=== PATIENT | male | born 1960 | race Caucasian/White ===

== ENCOUNTER 2017-07-13 23:12 | Inpatient (IN) | payer BC ==
[2017-07-13] MEDS ORDERED: Sodium Chloride 0.9% 1,000 ML IV ONE (23:56)
[2017-07-13] MEDS ORDERED: Ampicillin/Sulbactam Na 3 GM in Sodium Chloride 0.9% 100 ML IV ONE (23:56)
--- NOTE | 2017-07-13 23:56 | EDM.PDOC ---
ED HPI GENERAL MEDICAL PROBLEM - General Chief Complaint: Bite:Animal, Insect Stated Complaint: PAIN RT HAND/CAT BITE Time Seen by Provider: 07/13/17 23:52 - History of Present Illness INITIAL COMMENTS - FREE TEXT/NARRATIVE: HISTORY AND PHYSICAL: History of present illness: Patient 57-year-old white male presents status post cat bite this occurred 24 hours prior to arrival he was seen in another ER in [place] put on Augmentin and pain medication he presents now with wrist pain he states he did not realize it when this occurred he fell and injured his wrist also. No fever chills nausea vomiting Review of systems: As per history of present illness and below otherwise all systems reviewed and negative. Past medical history: As per history of present illness and as reviewed below otherwise noncontributory. Surgical history: As per history of present illness and as reviewed below otherwise noncontributory. Social history: No reported history of drug or alcohol abuse. Family history: As per history of present illness and as reviewed below otherwise noncontributory. Physical exam: HEENT: Atraumatic, normocephalic, pupils reactive, negative for conjunctival pallor or scleral icterus, mucous membranes moist, throat clear, neck supple, nontender, trachea midline. Lungs: Clear to auscultation, breath sounds equal bilaterally, chest nontender. Heart: S1S2, regular, negative for clicks, rubs, or JVD. Abdomen: Soft, nondistended, nontender. Negative for masses or hepatosplenomegaly. Negative for costovertebral tenderness. Pelvis: Stable nontender. Genitourinary: Deferred. Rectal: Deferred. Extremities: Patient has swelling erythema in the fifth digit where he sustained puncture wounds is limited range of motion secondary to pain wrist has no gross deformity crepitation or point tenderness Neuro: Awake, alert, oriented. Cranial nerves II through XII unremarkable. Cerebellum unremarkable. Motor and sensory unremarkable throughout. Exam nonfocal. Diagnostics: X-ray right wrist Therapeutics: None Impression: #1 cat Bite right hand with cellulitis #2 right wrist injury Definitive disposition and diagnosis as appropriate pending reevaluation and review of above. right little finger Pain Score (Numeric/FACES): 10 right wrist Pain Score (Numeric/FACES): 10 - Related Data Allergies Allergy/AdvReac Type Severity Reaction Status Date / Time No Known Allergies Allergy Verified 07/13/17 23:40 Home Meds: Home Meds Amoxicillin/Clavulanate K [Augmentin 875-125 MG] 1 tab PO BID 07/13/17 [History] Hydrocodone/Acetaminophen [Hydrocodon-Acetaminophen 5-325] 1 tab PO Q6HR PRN [History] Past Medical History - Past Health History Medical/Surgical History: Denies Medical/Surgical History Social & Family History - Family History Family Medical History: Noncontributory - Tobacco Use Smoking Status *Q: Never Smoker - Recreational Drug Use Recreational Drug Use: No ED ROS GENERAL - Review of Systems Review Of Systems: ROS reveals no pertinent complaints other than HPI. ED EXAM, ANIMAL BITE - Physical Exam Exam: See Below (See dictation) Course - Vital Signs Last Recorded V/S: Last Vital Signs Temp 37.0 C 07/15/17 16:00 Pulse 65 07/15/17 16:00 Resp 16 07/15/17 16:00 BP 148/91 H 07/15/17 16:00 Pulse Ox 97 07/15/17 16:00 - Orders/Labs/Meds Orders: Medication Orders Hydrocodone Bitart/Acetaminophen ([place] 325-5 Mg) 2 tab PO Q4H PRN PRN Reason: Pain Last Admin: 07/15/17 15:50 Dose: 2 tab Admin: 07/15/17 08:44 Dose: 2 tab Admin: 07/15/17 04:19 Dose: 2 tab Admin: 07/14/17 20:24 Dose: 2 tab Admin: 07/14/17 13:04 Dose: 2 tab Piperacillin Sod/Tazobactam (Sod 3.375 gm/ Sodium Chloride) 50 mls @ 100 mls/ hr IV Q8H [facility] Last Admin: 07/15/17 15:54 Dose: 100 mls/hr Infusion: 07/15/17 08:33 Dose: 100 mls/hr Admin: 07/15/17 08:03 Dose: 100 mls/hr Vancomycin HCl 1,500 mg/ (Sodium Chloride) 500 mls @ 333.333 mls/hr IV Q12H [facility] Last Admin: 07/15/17 08:38 Dose: 333.333 mls/hr Ondansetron HCl (Zofran Odt) 4 mg PO Q4H PRN PRN Reason: Nausea/Vomiting Labs: Laboratory Tests 07/13/17 07/13/17 Range/Units 00:06 00:34 WBC 15.29 H (4.0-11.0) K/uL RBC 4.57 (4.50-5.90) M/uL Hgb 14.7 (13.0-17.0) g/dL Hct 42.2 (38.0-50.0) % MCV 92.3 (80.0-98.0) fL MCH 32.2 H (27.0-32.0) pg MCHC 34.8 (31.0-37.0) g/dL RDW Std Deviation 40.9 (28.0-62.0) fl RDW Coeff of Andry 12 (11.0-15.0) % Plt Count 205 (150-400) K/uL MPV 13.20 H (7.40-12.00) fL Neut % (Auto) 77.7 (48.0-80.0) % Lymph % (Auto) 10.9 L (16.0-40.0) % [place] % (Auto) 9.5 (0.0-15.0) % Eos % (Auto) 1.8 (0.0-7.0) % Baso % (Auto) 0.1 (0.0-1.5) % Neut # (Auto) 11.9 H (1.4-5.7) K/uL Lymph # (Auto) 1.7 (0.6-2.4) K/uL [place] # (Auto) 1.5 H (0.0-0.8) K/uL Eos # (Auto) 0.3 (0.0-0.7) K/uL Baso # (Auto) 0.0 (0.0-0.1) K/uL Sodium 140 (136-146) mmol/L Potassium 4.0 (3.5-5.1) mmol/L Chloride 106 (98-110) mmol/L Carbon Dioxide 21 (21-31) mmol/L BUN 17 (6.0-23.0) mg/dL Creatinine 1.2 (0.6-1.5) mg/dL Est Cr Clr Drug Dosing 74.55 mL/min Estimated GFR (MDRD) > 60.0 ml/min Glucose 138 H (60-110) mg/dL Calcium 9.6 (8.8-10.8) mg/dL Total Bilirubin 0.8 (0.1-1.5) mg/dL AST 18 (5-40) IU/L ALT 25 (8-54) IU/L Alkaline Phosphatase 77 (40-150) Total Protein 7.5 (6.0-8.0) g/dL Albumin 4.5 (3.5-5.0) g/dL Globulin 3.0 (2.0-3.5) g/dL Albumin/Globulin Ratio 1.5 (1.3-2.8) Meds: Medications Generic Name Dose Route Start Last Admin Trade Name Yoshi PRN Reason Stop Dose Admin Hydrocodone Bitart/Acetaminophen 2 tab 07/14/17 09:38 07/15/17 15:50 [place] 325-5 Mg PO 2 tab Q4H PRN Administration Pain Piperacillin Sod/Tazobactam 50 mls @ 100 mls/hr 07/15/17 08:00 07/15/17 15:54 Sod 3.375 gm/ Sodium Chloride IV 100 mls/hr Q8H [facility] Administration Vancomycin HCl 1,500 mg/ 500 mls @ 333.333 mls/hr 07/15/17 09:00 07/15/17 08: 38 Sodium Chloride IV 333.333 mls/hr Q12H [facility] Administration Ondansetron HCl 4 mg 07/14/17 09:38 Zofran Odt PO Q4H PRN Nausea/Vomiting Discontinued Medications Generic Name Dose Route Start Last Admin Trade Name Yoshi PRN Reason Stop Dose Admin Ampicillin Sodium/Sulbactam 100 mls @ 200 mls/hr 07/13/17 23:56 07/14/17 00: 39 Sodium 3 gm/ Sodium Chloride IV 07/14/17 00:25 200 mls/hr ONETIME ONE Administration Sodium Chloride 1,000 mls @ 999 mls/hr 07/13/17 23:56 07/14/17 00:18 Normal Saline IV 07/14/17 00:56 999 mls/hr STAT ONE Administration Ampicillin Sodium/Sulbactam 50 mls @ 100 mls/hr 07/14/17 10:30 07/14/17 16:55 Sodium 1.5 gm/ Sodium Chloride IV 07/14/17 18:30 100 mls/hr Q6H [facility] Administration Ampicillin Sodium/Sulbactam 50 mls @ 100 mls/hr 07/14/17 22:30 07/15/17 04:12 Sodium 1.5 gm/ Sodium Chloride IV 100 mls/hr Q6H [facility] Administration Vancomycin HCl 1,000 mg/ 250 mls @ 167 mls/hr 07/15/17 08:00 Dextrose/Water IV Q24H [facility] Ketorolac Tromethamine 30 mg 07/14/17 00:18 07/14/17 00:41 Toradol IVPUSH 07/14/17 00:19 30 mg ONETIME ONE Administration Departure - Departure Time of Disposition: 18:25 Disposition: Refer to Observation Condition: Good Clinical Impression: Cellulitis, Animal bite of hand - Discharge Information
[2017-07-14] MEDS ORDERED: Ketorolac 30 MG/ML SDV IVPUSH ONE (00:18)
[2017-07-14 00:54] LABS: CHLORIDE,CL 106 mmol/L (98-110); SODIUM,NA 140 mmol/L (136-146)
[2017-07-14] MEDS: Ampicillin/Sulbactam Na 1.5 GM in Sodium Chloride 0.9% 50 ML IV SCH ×3 (11:26→22:22)
[2017-07-14] MEDS: Acetaminophen/HYDROcodone 325-5 MG Tab PO PRN ×2 (13:04→20:24)
--- NOTE | 2017-07-14 14:20 | CR ---
EXAM DATE: 07/14/17 PATIENT'S AGE: 57 Patient: TERELL ROBERTO Facility: [place], [place] Site . Site : 1960 Study: XRay Extremity Right [id number]/17/2018 12:07:39 AM Ordering Physician: Romeo Marte Final Report: INDICATION: cat bite, red, swollen hand/wrist TECHNIQUE: Two views of the right hand COMPARISON: None FINDINGS: Bones: No fractures or bone lesions. Joint spaces: Degenerative changes. Soft tissues: Unremarkable. IMPRESSION: No acute bony abnormality Dictated by Herve Lai MD @ 07/14/2017 12:19:20 AM Dictated by: Herve Lai MD @ 07/14/2017 00:19:28 (Electronic Signature) Report Signed by Proxy. [facility]
[2017-07-15] MEDS: Ampicillin/Sulbactam Na 1.5 GM in Sodium Chloride 0.9% 50 ML IV SCH (04:12)
[2017-07-15] MEDS: Acetaminophen/HYDROcodone 325-5 MG Tab PO PRN ×4 (04:19→20:28)
--- NOTE | 2017-07-15 07:57 | PCM.HP ---
H&P History of Present Illness - General Date of Service: 07/15/17 Admit Problem/Dx: Admission Diagnosis/Problem Admission Diagnosis/Problem Cellulitis Source of Information: Patient, Provider, RN History Limitations: Reports: No Limitations - History of Present Illness Initial Comments - Free Text/Narative: cat bite wednesday and worsening. Started PO antibiotics and now with some worsening. IV antibiotics in the ER with some improvement. PAtient has a previouis hardware placement in hip. Discussed the need for aggressive treatment given the wrist pain as well as the hardware. Will plan admission and continued antibiotics as the current dosage seems to be improving the situation. All questions answered. No redness and no volar finger tenderness. Onset of Symptoms: Reports: Gradual Symptom Onset Date: 07/12/17 Duration of Symptoms: Reports: Day(s): Location: Reports: Upper Extremity, Right Quality: Reports: Ache, Throbbing Severity: Moderate Improves with: Reports: Immobilization Worsens with: Reports: Movement Context: Reports: Other (CAt - fully vaccinated) right little finger Pain Score (Numeric/FACES): 10 right wrist Pain Score (Numeric/FACES): 4 - Related Data Allergies/Adverse Reactions: Allergies Allergy/AdvReac Type Severity Reaction Status Date / Time No Known Allergies Allergy Verified 07/13/17 23:40 Home Medications: Home Meds Amoxicillin/Clavulanate K [Augmentin 875-125 MG] 1 tab PO BID 07/13/17 [History] Hydrocodone/Acetaminophen [Hydrocodon-Acetaminophen 5-325] 1 tab PO Q6HR PRN [History] Past Medical History - Past Health History Medical/Surgical History: Denies Medical/Surgical History HEENT History: Reports: Other (See Below) Other HEENT History: wears glasses Gastrointestinal History: Reports: PUD Musculoskeletal History: Reports: Arthritis Neurological History: Reports: Seizure - Infectious Disease History Infectious Disease History: Reports: Chicken Pox - Past Surgical History HEENT Surgical History: Reports: Tonsillectomy Cardiovascular Surgical History: Reports: Other (See Below) 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 GI Surgical History: Reports: None Other Neurological Surgeries/Procedures: last seizure 15 yrs ago Musculoskeletal Surgical History: Reports: Hip Replacement Social & Family History - Family History Family Medical History: Noncontributory - Tobacco Use Smoking Status *Q: Never Smoker Second Hand Smoke Exposure: No - Caffeine Use Caffeine Use: Reports: Coffee - Recreational Drug Use Recreational Drug Use: No H&P Review of Systems - Review of Systems: Review Of Systems: See Below General: Reports: No Symptoms HEENT: Reports: No Symptoms Pulmonary: Reports: No Symptoms Musculoskeletal: Reports: Arm Pain, Hand Pain, Muscle Pain Skin: Reports: Wound Exam - Exam Exam: See Below - Vital Signs Vital Signs: Last Vital Signs Temp 98.5 F 07/15/17 05:00 Pulse 71 07/15/17 05:00 Resp 19 07/15/17 05:00 BP 128/79 07/15/17 05:00 Pulse Ox 97 07/15/17 05:00 Weight: 252 lb 9.6 oz - Exam General: Alert, Oriented, Cooperative HEENT: EOMI Lungs: Normal Respiratory Effort Extremities: Arm Pain, Redness (at finger cat bite. limited to pip joint area at this time. ) Skin: Warm, Dry, Wound (cat bite to pip joint area of the right small finger. ) Neuro Extensive - Mental Status: Alert, Oriented x3, Normal Mood/Affect Psychiatric: Alert, Normal Affect, Normal Mood - Patient Data Lab Results Last 24 hrs: Laboratory Results - last 24 hr 07/15/17 Range/Units 04:57 WBC 11.85 H (4.0-11.0) K/uL RBC 4.41 L (4.50-5.90) M/uL Hgb 14.0 (13.0-17.0) g/dL Hct 40.8 (38.0-50.0) % MCV 92.5 (80.0-98.0) fL MCH 31.7 (27.0-32.0) pg MCHC 34.3 (31.0-37.0) g/dL RDW Std Deviation 42.7 (28.0-62.0) fl RDW Coeff of Andry 13 (11.0-15.0) % Plt Count 189 (150-400) K/uL MPV 13.70 H (7.40-12.00) fL Neut % (Auto) 67.3 (48.0-80.0) % Lymph % (Auto) 18.4 (16.0-40.0) % [place] % (Auto) 10.7 (0.0-15.0) % Eos % (Auto) 3.3 (0.0-7.0) % Baso % (Auto) 0.3 (0.0-1.5) % Neut # (Auto) 8.0 H (1.4-5.7) K/uL Lymph # (Auto) 2.2 (0.6-2.4) K/uL [place] # (Auto) 1.3 H (0.0-0.8) K/uL Eos # (Auto) 0.4 (0.0-0.7) K/uL Baso # (Auto) 0.0 (0.0-0.1) K/uL Nucleated RBC % 0.0 /100WBC Nucleated RBCs # 0 K/uL Result Diagrams: 07/15/17 04:57 07/13/17 00:06 *Q Meaningful Use (ADM) - VTE *Q VTE Criteria *Q: VTE Anticoagulation Contraindications: Med/TX Not Indicated/Need - VTE Risk Assess *Q Each Risk Factor Represents 1 Point: Age 41 - 59 years Total Score 1 Point Risk Factors: 1 Each Risk Factor Represents 2 Points: None Total Score 2 Point Risk Factors: 0 Each Risk Factor Represents 3 Points: None Total Score 3 Point Risk Factors: 0 Each Risk Factor Represents 5 Points: None Total Score 5 Point Risk Factors: 0 Venous Thromboembolism Risk Factor Score *Q: 1 - Stroke *Q Stroke Criteria *Q: Anticoagulation Contraindications Stroke *Q: Med/TX Not Indicated/Need Antithrombotic Contraindications Stroke *Q: Med/TX Not Indicated/Need Thrombolytic/Fibrinolytic Contraindications Stroke *Q: Med/TX Not Indicated/Need Statin Contraindications Stroke *Q: Med/TX Not Indicated/Need Rehabilitation Assessment Contraindication *Q: Med/tx not indicated/need - AMI *Q AMI Criteria *Q: Aspirin Contraindications AMI *Q: Med/TX Not Indicated/Need Thrombolytic/Fibrinolytic Contraindications IV (AMI) *Q: Med/tx not indicated/ need Statin Contraindications AMI *Q: Med/TX Not Indicated/Need - Problem List (1) Cellulitis and abscess of hand SNOMED Code(s): 327742185 ICD Code: L03.119 - CELLULITIS OF UNSPECIFIED PART OF LIMB; L02.519 - CUTANEOUS ABSCESS OF UNSPECIFIED HAND Status: Acute Priority: High Current Visit: Yes Problem List Initiated/Reviewed/Updated: Yes Orders Last 24hrs: Active Orders 24 hr Category Date Time Status Elevate Extremity [RC] CONTINUOUS Care 07/14/17 09:38 Active Telemetry Monitoring [Cardiac Monitoring] [RC] Q8H Care 07/14/17 13:00 Active Wound Care [RC] Q12H Care 07/14/17 09:38 Active Regular Diet [DIET] Diet 07/14/17 Lunch Active Acetaminophen/HYDROcodone [[place] 325-5 MG] Med 07/14/17 09:38 Active 2 tab PO Q4H PRN Ondansetron [Zofran ODT] Med 07/14/17 09:38 Active 4 mg PO Q4H PRN Piperacillin/Tazobactam [Piperacil-Tazobact] 3.375 gm Med 07/15/17 08:00 Ordered Sodium Chloride 0.9% [Normal Saline] 50 ml IV Q8H Vancomycin 1,000 mg Med 07/15/17 08:00 Ordered Dextrose 5% in Water 250 ml IV Q24H Medication Orders Hydrocodone Bitart/Acetaminophen ([place] 325-5 Mg) 2 tab PO Q4H PRN PRN Reason: Pain Last Admin: 07/15/17 04:19 Dose: 2 tab Admin: 07/14/17 20:24 Dose: 2 tab Admin: 07/14/17 13:04 Dose: 2 tab Piperacillin Sod/Tazobactam (Sod 3.375 gm/ Sodium Chloride) 50 mls @ 100 mls/ hr IV Q8H [facility] Vancomycin HCl 1,000 mg/ (Dextrose/Water) 250 mls @ 167 mls/hr IV Q24H [facility] Ondansetron HCl (Zofran Odt) 4 mg PO Q4H PRN PRN Reason: Nausea/Vomiting Assessment/Plan Comment:: admit for IV antibiotics and observation. wound cares as noted.
--- NOTE | 2017-07-15 08:02 | PCM.PN ---
- General Info Date of Service: 07/15/17 Admission Dx/Problem (Free Text): Admission Diagnosis/Problem Admission Diagnosis/Problem Cellulitis Functional Status: Reports: New Symptoms (worsening pain in the arm and swelling overnight. ). Denies: Pain Controlled - Review of Systems General: Denies: Fever HEENT: Reports: No Symptoms Pulmonary: Reports: No Symptoms Musculoskeletal: Reports: Arm Pain, Hand Pain Skin: Denies: Rash - Patient Data Vitals - Most Recent: Last Vital Signs Temp 98.5 F 07/15/17 05:00 Pulse 71 07/15/17 05:00 Resp 19 07/15/17 05:00 BP 128/79 07/15/17 05:00 Pulse Ox 97 07/15/17 05:00 Weight - Most Recent: 252 lb 9.6 oz I&O - Last 24 Hours: Intake & Output 07/14/17 07/14/17 07/15/17 15:59 23:59 07:59 Intake Total 100 1500 Balance 100 1500 Lab Results Last 24 Hours: Laboratory Results - last 24 hr 07/15/17 Range/Units 04:57 WBC 11.85 H (4.0-11.0) K/uL RBC 4.41 L (4.50-5.90) M/uL Hgb 14.0 (13.0-17.0) g/dL Hct 40.8 (38.0-50.0) % MCV 92.5 (80.0-98.0) fL MCH 31.7 (27.0-32.0) pg MCHC 34.3 (31.0-37.0) g/dL RDW Std Deviation 42.7 (28.0-62.0) fl RDW Coeff of Andry 13 (11.0-15.0) % Plt Count 189 (150-400) K/uL MPV 13.70 H (7.40-12.00) fL Neut % (Auto) 67.3 (48.0-80.0) % Lymph % (Auto) 18.4 (16.0-40.0) % [place] % (Auto) 10.7 (0.0-15.0) % Eos % (Auto) 3.3 (0.0-7.0) % Baso % (Auto) 0.3 (0.0-1.5) % Neut # (Auto) 8.0 H (1.4-5.7) K/uL Lymph # (Auto) 2.2 (0.6-2.4) K/uL [place] # (Auto) 1.3 H (0.0-0.8) K/uL Eos # (Auto) 0.4 (0.0-0.7) K/uL Baso # (Auto) 0.0 (0.0-0.1) K/uL Nucleated RBC % 0.0 /100WBC Nucleated RBCs # 0 K/uL Med Orders - Current: Current Medications Hydrocodone Bitart/Acetaminophen ([place] 325-5 Mg) 2 tab PO Q4H PRN PRN Reason: Pain Last Admin: 07/15/17 04:19 Dose: 2 tab Piperacillin Sod/Tazobactam (Sod 3.375 gm/ Sodium Chloride) 50 mls @ 100 mls/ hr IV Q8H [facility] Vancomycin HCl 1,500 mg/ (Sodium Chloride) 500 mls @ 333.333 mls/hr IV Q12H [facility] Ondansetron HCl (Zofran Odt) 4 mg PO Q4H PRN PRN Reason: Nausea/Vomiting Discontinued Medications Ampicillin Sodium/Sulbactam (Sodium 3 gm/ Sodium Chloride) 100 mls @ 200 mls/ hr IV ONETIME ONE Stop: 07/14/17 00:25 Last Admin: 07/14/17 00:39 Dose: 200 mls/hr Sodium Chloride (Normal Saline) 1,000 mls @ 999 mls/hr IV STAT ONE Stop: 07/14/17 00:56 Last Admin: 07/14/17 00:18 Dose: 999 mls/hr Ampicillin Sodium/Sulbactam (Sodium 1.5 gm/ Sodium Chloride) 50 mls @ 100 mls/ hr IV Q6H [facility] Stop: 07/14/17 18:30 Last Admin: 07/14/17 16:55 Dose: 100 mls/hr Ampicillin Sodium/Sulbactam (Sodium 1.5 gm/ Sodium Chloride) 50 mls @ 100 mls/ hr IV Q6H [facility] Last Admin: 07/15/17 04:12 Dose: 100 mls/hr Vancomycin HCl 1,000 mg/ (Dextrose/Water) 250 mls @ 167 mls/hr IV Q24H [facility] Ketorolac Tromethamine (Toradol) 30 mg IVPUSH ONETIME ONE Stop: 07/14/17 00:19 Last Admin: 07/14/17 00:41 Dose: 30 mg - Exam General: Alert, Oriented, Cooperative HEENT: EOMI Lungs: Normal Respiratory Effort Extremities: Arm Pain, Redness (some redness of the finger now with minor redness at the wrist are. Clearly worse than yesterday. No signs of flexor tenosynovitis and able to extend fingers with some pain on the small finger. No pain in the palm and some wrist pain volarly at the ulnar side. No lymphangetic streaking at this time. ) Skin: Warm, Dry Wound/Incisions: No Drainage, Erythema (more redness at the pip joint area. No continues streaking up the arm. Some volar wrist redness where he injured this with fall. Overall worse than yesterday despite initial improvement. ) Neurological: No New Focal Deficit Psy/Mental Status: Alert, Normal Affect, Normal Mood - Problem List & Annotations (1) Cellulitis and abscess of hand SNOMED Code(s): 205335049 Code(s): L03.119 - CELLULITIS OF UNSPECIFIED PART OF LIMB; L02.519 - CUTANEOUS ABSCESS OF UNSPECIFIED HAND Status: Acute Priority: High Current Visit: Yes - Problem List Review Problem List Initiated/Reviewed/Updated: Yes - My Orders Last 24 Hours: My Active Orders 07/14/17 09:38 Elevate Extremity [RC] CONTINUOUS Wound Care [RC] Q12H Acetaminophen/HYDROcodone [[place] 325-5 MG] 2 tab PO Q4H PRN Ondansetron [Zofran ODT] 4 mg PO Q4H PRN 07/14/17 13:00 Telemetry Monitoring [Cardiac Monitoring] [RC] Q8H 07/14/17 Lunch Regular Diet [DIET] 07/15/17 08:00 Piperacillin/Tazobactam [Piperacil-Tazobact] 3.375 gm Sodium Chloride 0.9% [ Normal Saline] 50 ml IV Q8H 07/15/17 09:00 Vancomycin 1,500 mg Sodium Chloride 0.9% [Normal Saline] 500 ml IV Q12H 07/17/17 08:00 VANCOMYCIN TROUGH [CHEM] Routine - Assessment Assessment:: phone call last night to floor noted continued improvement but overnight with worsening. more pain and more volar wrist redness and pressure. - Plan Plan:: we will change to vanco zosyn and should there be any drainage, we will try to send a culture. would top removed and unable to express pus. More dorsal wound and redness than volar finger. continue elevation, soaks and pharmacy consult for vanco dosing. cbc pending. cultures negative thus far. recheck this afternoon for changes.
[2017-07-15] MEDS: Piperacillin/Tazobactam 3.375 GM in Sodium Chloride 0.9% 50 ML IV SCH ×2 (08:03→15:54)
[2017-07-16] MEDS: Piperacillin/Tazobactam 3.375 GM in Sodium Chloride 0.9% 50 ML IV SCH ×3 (00:28→15:22)
[2017-07-16] MEDS: Acetaminophen/HYDROcodone 325-5 MG Tab PO PRN ×2 (04:35→07:58)
--- NOTE | 2017-07-16 10:05 | PCM.PREANE ---
Preanesthetic Assessment - Anesthesia/Transfusion/Family Hx Anesthesia History: Prior Anesthesia Without Reaction Family History of Anesthesia Reaction: No Transfusion History: No Prior Transfusion(s) - Review of Systems General: No Symptoms Pulmonary: No Symptoms Cardiovascular: No Symptoms Gastrointestinal: No Symptoms Neurological: No Symptoms Other: Reports: None - Physical Assessment NPO Status Date: 07/16/17 (0600) O2 Sat by Pulse Oximetry: 96 Respiratory Rate: 20 Vital Signs: Last Vital Signs Temp 36.6 C 07/16/17 08:00 Pulse 64 07/16/17 08:00 Resp 20 07/16/17 08:00 BP 146/85 H 07/16/17 08:00 Pulse Ox 96 07/16/17 08:00 Height: 1.83 m Weight: 114.577 kg ASA Class: 2 Mental Status: Alert & Oriented x3 Airway Class: Mallampati = 1 Dentition: Reports: Normal Dentition ROM/Head Extension: Full Lungs: Clear to Auscultation, Normal Respiratory Effort Cardiovascular: Regular Rate, Regular Rhythm - Lab Values: Laboratory Last Values WBC 11.85 K/uL (4.0-11.0) H 07/15/17 04:57 RBC 4.41 M/uL (4.50-5.90) L 07/15/17 04:57 Hgb 14.0 g/dL (13.0-17.0) 07/15/17 04:57 Hct 40.8 % (38.0-50.0) 07/15/17 04:57 MCV 92.5 fL (80.0-98.0) 07/15/17 04:57 MCH 31.7 pg (27.0-32.0) 07/15/17 04:57 MCHC 34.3 g/dL (31.0-37.0) 07/15/17 04:57 RDW Std Deviation 42.7 fl (28.0-62.0) 07/15/17 04:57 RDW Coeff of Andry 13 % (11.0-15.0) 07/15/17 04:57 Plt Count 189 K/uL (150-400) 07/15/17 04:57 MPV 13.70 fL (7.40-12.00) H 07/15/17 04:57 Neut % (Auto) 67.3 % (48.0-80.0) 07/15/17 04:57 Lymph % (Auto) 18.4 % (16.0-40.0) 07/15/17 04:57 [place] % (Auto) 10.7 % (0.0-15.0) 07/15/17 04:57 Eos % (Auto) 3.3 % (0.0-7.0) 07/15/17 04:57 Baso % (Auto) 0.3 % (0.0-1.5) 07/15/17 04:57 Neut # (Auto) 8.0 K/uL (1.4-5.7) H 07/15/17 04:57 Lymph # (Auto) 2.2 K/uL (0.6-2.4) 07/15/17 04:57 [place] # (Auto) 1.3 K/uL (0.0-0.8) H 07/15/17 04:57 Eos # (Auto) 0.4 K/uL (0.0-0.7) 07/15/17 04:57 Baso # (Auto) 0.0 K/uL (0.0-0.1) 07/15/17 04:57 Nucleated RBC % 0.0 /100WBC 07/15/17 04:57 Nucleated RBCs # 0 K/uL 07/15/17 04:57 Sodium 140 mmol/L (136-146) 07/13/17 00:06 Potassium 4.0 mmol/L (3.5-5.1) 07/13/17 00:06 Chloride 106 mmol/L (98-110) 07/13/17 00:06 Carbon Dioxide 21 mmol/L (21-31) 07/13/17 00:06 BUN 17 mg/dL (6.0-23.0) 07/13/17 00:06 Creatinine 1.2 mg/dL (0.6-1.5) 07/13/17 00:06 Est Cr Clr Drug Dosing 74.55 mL/min 07/13/17 00:06 Estimated GFR (MDRD) > 60.0 ml/min 07/13/17 00:06 Glucose 138 mg/dL (60-110) H 07/13/17 00:06 Calcium 9.6 mg/dL (8.8-10.8) 07/13/17 00:06 Total Bilirubin 0.8 mg/dL (0.1-1.5) 07/13/17 00:06 AST 18 IU/L (5-40) 07/13/17 00:06 ALT 25 IU/L (8-54) 07/13/17 00:06 Alkaline Phosphatase 77 (40-150) 07/13/17 00:06 Total Protein 7.5 g/dL (6.0-8.0) 07/13/17 00:06 Albumin 4.5 g/dL (3.5-5.0) 07/13/17 00:06 Globulin 3.0 g/dL (2.0-3.5) 07/13/17 00:06 Albumin/Globulin Ratio 1.5 (1.3-2.8) 07/13/17 00:06 - Allergies Allergies/Adverse Reactions: Allergies Allergy/AdvReac Type Severity Reaction Status Date / Time No Known Allergies Allergy Verified 07/13/17 23:40 - Acknowledgements Anesthesia Type Planned: General Anesthesia Pt an Appropriate Candidate for the Planned Anesthesia: Yes Alternatives and Risks of Anesthesia Discussed w Pt/Guardian: Yes Pt/Guardian Understands and Agrees with Anesthesia Plan: Yes Additional Comments: GA with ETT PreAnesthesia Questionnaire - Past Health History Medical/Surgical History: Denies Medical/Surgical History HEENT History: Reports: Other (See Below) Other HEENT History: wears glasses Gastrointestinal History: Reports: PUD Musculoskeletal History: Reports: Arthritis Neurological History: Reports: Seizure - Infectious Disease History Infectious Disease History: Reports: Chicken Pox - Past Surgical History HEENT Surgical History: Reports: Tonsillectomy Cardiovascular Surgical History: Reports: Other (See Below) 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 GI Surgical History: Reports: None Other Neurological Surgeries/Procedures: last seizure 15 yrs ago Musculoskeletal Surgical History: Reports: Hip Replacement - SUBSTANCE USE Smoking Status *Q: Never Smoker Second Hand Smoke Exposure: No Recreational Drug Use History: No - HOME MEDS Home Medications: Home Meds Amoxicillin/Clavulanate K [Augmentin 875-125 MG] 1 tab PO BID 07/13/17 [History] Hydrocodone/Acetaminophen [Hydrocodon-Acetaminophen 5-325] 1 tab PO Q6HR PRN [History] - CURRENT (IN HOUSE) MEDS Current Meds: Current Medications Hydrocodone Bitart/Acetaminophen ([place] 325-5 Mg) 2 tab PO Q4H PRN PRN Reason: Pain Last Admin: 07/16/17 07:58 Dose: 2 tab Piperacillin Sod/Tazobactam (Sod 3.375 gm/ Sodium Chloride) 50 mls @ 100 mls/ hr IV Q8H [facility] Last Admin: 07/16/17 07:58 Dose: 100 mls/hr Vancomycin HCl 1,500 mg/ (Sodium Chloride) 500 mls @ 333.333 mls/hr IV Q12H [facility] Last Admin: 07/16/17 09:05 Dose: 333.3 mls/hr Ondansetron HCl (Zofran Odt) 4 mg PO Q4H PRN PRN Reason: Nausea/Vomiting Discontinued Medications Ampicillin Sodium/Sulbactam (Sodium 3 gm/ Sodium Chloride) 100 mls @ 200 mls/ hr IV ONETIME ONE Stop: 07/14/17 00:25 Last Admin: 07/14/17 00:39 Dose: 200 mls/hr Sodium Chloride (Normal Saline) 1,000 mls @ 999 mls/hr IV STAT ONE Stop: 07/14/17 00:56 Last Admin: 07/14/17 00:18 Dose: 999 mls/hr Ampicillin Sodium/Sulbactam (Sodium 1.5 gm/ Sodium Chloride) 50 mls @ 100 mls/ hr IV Q6H [facility] Stop: 07/14/17 18:30 Last Admin: 07/14/17 16:55 Dose: 100 mls/hr Ampicillin Sodium/Sulbactam (Sodium 1.5 gm/ Sodium Chloride) 50 mls @ 100 mls/ hr IV Q6H [facility] Last Admin: 07/15/17 04:12 Dose: 100 mls/hr Vancomycin HCl 1,000 mg/ (Dextrose/Water) 250 mls @ 167 mls/hr IV Q24H [facility] Ketorolac Tromethamine (Toradol) 30 mg IVPUSH ONETIME ONE Stop: 07/14/17 00:19 Last Admin: 07/14/17 00:41 Dose: 30 mg
--- NOTE | 2017-07-16 10:29 | PCM.SN ---
- Free Text/Narrative Note: Recheck yesterday afternoon showed improvement and this am with again worsening despite antibiotics. Labs improving and more focal, but clearly not resolving the issue. Likely flexor tenosynovitis progress and will plan I and D and wash out in the OR. All questions answered and informed consent obtained.
[2017-07-16] MEDS ORDERED: Bupivacaine 25%/EPINEPHrine/PF 30 ML ONE (10:46)
[2017-07-16] MEDS ORDERED: Ondansetron 4 MG/2 ML SDV ONE (12:11)
[2017-07-16] MEDS ORDERED: Propofol 200 MG/20 ML SDV ONE (12:12)
[2017-07-16] MEDS ORDERED: fentaNYL 100 MCG/2 ML SDV ONE ×4 (12:12→14:12)
[2017-07-16] MEDS ORDERED: Midazolam 1 MG/ML 2 ML SDV ONE (12:12)
[2017-07-16] MEDS ORDERED: Dexamethasone 4 MG/ML 5 ML MDV ONE (12:43)
[2017-07-16] MEDS ORDERED: ePHEDrine 50 MG/ML SDV ONE (13:33)
[2017-07-16] MEDS: fentaNYL 100 MCG/2 ML SDV IVPUSH PRN ×2 (14:13→14:20)
--- NOTE | 2017-07-16 14:15 | PCM.OPNOTE ---
- General Post-Op/Procedure Note Date of Surgery/Procedure: 07/16/17 Operative Procedure(s): incision and drainage of right hand and finger and forearm flexor tenosynovitis and right carpal tunnel release Pre Op Diagnosis: flexor tenosynovitis right finger, hand and forearm Post-Op Diagnosis: Same Anesthesia Technique: General ET Tube, Local Primary Surgeon: Ashley Wang Playground Equipment Erector: Yuki Oliver Complications: None Condition: Fair Free Text/Narrative:: Intake & Output 07/15/17 07/16/17 07/16/17 23:59 07:59 15:59 Intake Total 2050 1100 500 Output Total 800 1900 Balance 1250 -800 500
[2017-07-16] MEDS ORDERED: HYDROmorphone 2 MG/ML SDV IVPUSH ONE (14:23)
[2017-07-16] MEDS ORDERED: Morphine 2 MG/ML Syringe IVPUSH PRN (14:23)
--- NOTE | 2017-07-16 14:29 | PCM.POSTAN ---
POST ANESTHESIA ASSESSMENT - MENTAL STATUS Mental Status: Alert, Oriented - RESPIRATORY Respiratory Status: Respiratory Rate WNL, Airway Patent, O2 Saturation Stable - CARDIOVASCULAR CV Status: Pulse Rate WNL, Blood Pressure Stable - GASTROINTESTINAL GI Status: No Symptoms - POST OP HYDRATION Hydration Status: Adequate & Stable
[2017-07-16] MEDS: Acetaminophen/HYDROcodone 325-10 MG Tab PO PRN ×3 (16:30→22:00)
--- NOTE | 2017-07-16 16:30 | PCM48HPAN ---
Post Anesthesia Note - EVALUATION WITHIN 48HRS OF ANESTHETIC Vital Signs in Normal Range: Yes Patient Participated in Evaluation: Yes Respiratory Function Stable: Yes Airway Patent: Yes Cardiovascular Function Stable: Yes Hydration Status Stable: Yes Pain Control Satisfactory: Yes Nausea and Vomiting Control Satisfactory: Yes Mental Status Recovered: Yes
[2017-07-16] MEDS: Ondansetron 4 MG Tab.DIS PO PRN (23:30)
[2017-07-17] MEDS: Piperacillin/Tazobactam 3.375 GM in Sodium Chloride 0.9% 50 ML IV SCH ×3 (00:43→16:39)
[2017-07-17] MEDS: Pantoprazole 40 MG Tab.CR PO SCH (06:37)
--- NOTE | 2017-07-17 08:43 | PCM.PN ---
- General Info Date of Service: 07/17/17 Admission Dx/Problem (Free Text): Admission Diagnosis/Problem Admission Diagnosis/Problem Cellulitis Subjective Update: significant improvement overnight. Much better swelling despite surgery. Issue with nausea last night. States that it happens with antiinflammatories. Likely from the anesthetic and meds given. We will start the pantoprazole and continue zofran if needed. Feeling better today. Functional Status: Reports: Pain Controlled, Tolerating Diet, Ambulating - Review of Systems General: Reports: No Symptoms HEENT: Reports: No Symptoms Pulmonary: Reports: No Symptoms Cardiovascular: Reports: No Symptoms Gastrointestinal: Reports: Decreased Appetite, Nausea, Vomiting Skin: Reports: Other (redness gone and incisions in place). Denies: Rash Psychiatric: Reports: No Symptoms - Patient Data Vitals - Most Recent: Last Vital Signs Temp 96.6 F 07/17/17 08:00 Pulse 69 07/17/17 08:00 Resp 20 07/17/17 08:00 BP 134/88 07/17/17 08:00 Pulse Ox 98 07/17/17 08:00 Weight - Most Recent: 252 lb 9.6 oz I&O - Last 24 Hours: Intake & Output 07/16/17 07/17/17 07/17/17 23:59 07:59 15:59 Intake Total 1000 1250 Output Total 900 3010 Balance 100 -1760 Lab Results Last 24 Hours: Laboratory Results - last 24 hr 07/17/17 Range/Units 08:16 WBC 16.16 H (4.0-11.0) K/uL RBC 4.28 L (4.50-5.90) M/uL Hgb 13.8 (13.0-17.0) g/dL Hct 39.6 (38.0-50.0) % MCV 92.5 (80.0-98.0) fL MCH 32.2 H (27.0-32.0) pg MCHC 34.8 (31.0-37.0) g/dL RDW Std Deviation 42.4 (28.0-62.0) fl RDW Coeff of Andry 13 (11.0-15.0) % Plt Count 208 (150-400) K/uL MPV 12.90 H (7.40-12.00) fL Neut % (Auto) 84.3 H (48.0-80.0) % Lymph % (Auto) 7.2 L (16.0-40.0) % [place] % (Auto) 8.4 (0.0-15.0) % Eos % (Auto) 0.1 (0.0-7.0) % Baso % (Auto) 0.0 (0.0-1.5) % Neut # (Auto) 13.6 H (1.4-5.7) K/uL Lymph # (Auto) 1.2 (0.6-2.4) K/uL [place] # (Auto) 1.4 H (0.0-0.8) K/uL Eos # (Auto) 0.0 (0.0-0.7) K/uL Baso # (Auto) 0.0 (0.0-0.1) K/uL Nucleated RBC % 0.0 /100WBC Nucleated RBCs # 0 K/uL Fausto Results Last 24 Hours: Microbiology 07/16/17 13:05 Gram Stain - Final Hand, Right 07/16/17 12:55 Gram Stain - Final Hand, Right Med Orders - Current: Current Medications Hydrocodone Bitart/Acetaminophen ([place] 325-10 Mg) 1 tab PO Q4H PRN PRN Reason: Pain (moderate 4-6) Last Admin: 07/16/17 22:00 Dose: 2 tab Piperacillin Sod/Tazobactam (Sod 3.375 gm/ Sodium Chloride) 50 mls @ 100 mls/ hr IV Q8H [facility] Last Infusion: 07/17/17 01:15 Dose: Infused Vancomycin HCl 1,500 mg/ (Sodium Chloride) 500 mls @ 333.333 mls/hr IV Q12H [facility] Last Infusion: 07/16/17 21:50 Dose: Infused Morphine Sulfate (Morphine) 2 mg IVPUSH Q2H PRN PRN Reason: pain severe Last Admin: 07/16/17 18:16 Dose: 2 mg Ondansetron HCl (Zofran Odt) 4 mg PO Q4H PRN PRN Reason: Nausea/Vomiting Last Admin: 07/16/17 23:30 Dose: 4 mg Pantoprazole Sodium (Protonix) 40 mg PO ACBREAKFAST [facility] Last Admin: 07/17/17 06:37 Dose: 40 mg Discontinued Medications Hydrocodone Bitart/Acetaminophen ([place] 325-5 Mg) 2 tab PO Q4H PRN PRN Reason: Pain Last Admin: 07/16/17 07:58 Dose: 2 tab Dexamethasone (Dexamethasone) Confirm Administered Dose 20 mg .ROUTE .STK-MED ONE Stop: 07/16/17 12:44 Ephedrine Sulfate (Ephedrine Sulfate) Confirm Administered Dose 50 mg .ROUTE .STK-MED ONE Stop: 07/16/17 13:34 Fentanyl (Sublimaze) Confirm Administered Dose 100 mcg .ROUTE .STK-MED ONE Stop: 07/16/17 12:13 Fentanyl (Sublimaze) Confirm Administered Dose 100 mcg .ROUTE .STK-MED ONE Stop: 07/16/17 12:34 Fentanyl (Sublimaze) Confirm Administered Dose 100 mcg .ROUTE .STK-MED ONE Stop: 07/16/17 13:02 Fentanyl (Sublimaze) 50 mcg IVPUSH Q5M PRN PRN Reason: Pain (moderate 4-6) Stop: 07/16/17 16:00 Last Admin: 07/16/17 14:20 Dose: 50 mcg Fentanyl (Sublimaze) Confirm Administered Dose 100 mcg .ROUTE .STK-MED ONE Stop: 07/16/17 14:13 Last Admin: 07/16/17 15:10 Dose: Not Given Hydromorphone HCl (Dilaudid) 2 mg IVPUSH ONETIME ONE Stop: 07/16/17 14:24 Last Admin: 07/16/17 15:17 Dose: 2 mg Ampicillin Sodium/Sulbactam (Sodium 3 gm/ Sodium Chloride) 100 mls @ 200 mls/ hr IV ONETIME ONE Stop: 07/14/17 00:25 Last Admin: 07/14/17 00:39 Dose: 200 mls/hr Sodium Chloride (Normal Saline) 1,000 mls @ 999 mls/hr IV STAT ONE Stop: 07/14/17 00:56 Last Admin: 07/14/17 00:18 Dose: 999 mls/hr Ampicillin Sodium/Sulbactam (Sodium 1.5 gm/ Sodium Chloride) 50 mls @ 100 mls/ hr IV Q6H [facility] Stop: 07/14/17 18:30 Last Admin: 07/14/17 16:55 Dose: 100 mls/hr Ampicillin Sodium/Sulbactam (Sodium 1.5 gm/ Sodium Chloride) 50 mls @ 100 mls/ hr IV Q6H [facility] Last Admin: 07/15/17 04:12 Dose: 100 mls/hr Vancomycin HCl 1,000 mg/ (Dextrose/Water) 250 mls @ 167 mls/hr IV Q24H [facility] Bupivacaine HCl/Epinephrine Bitart (Sensorc Mpf 0.25%-Epi 1:380742) Confirm Administered Dose 30 mls @ as directed .ROUTE .STK-MED ONE Stop: 07/16/17 10:47 Ketorolac Tromethamine (Toradol) 30 mg IVPUSH ONETIME ONE Stop: 07/14/17 00:19 Last Admin: 07/14/17 00:41 Dose: 30 mg Midazolam HCl (Versed 1 Mg/Ml) Confirm Administered Dose 2 mg .ROUTE .STK-MED ONE Stop: 07/16/17 12:13 Ondansetron HCl (Zofran) Confirm Administered Dose 4 mg .ROUTE .STK-MED ONE Stop: 07/16/17 12:12 Propofol (Diprivan 20 Ml) Confirm Administered Dose 200 mg .ROUTE .STK-MED ONE Stop: 07/16/17 12:13 - Exam Quality Assessment: DVT Prophylaxis (pas boots on. ). No: Supplemental Oxygen General: Alert, Oriented, Cooperative Lungs: Normal Respiratory Effort Extremities: Joint Swelling (improving but stiffness) Skin: Warm, Dry Wound/Incisions: No: Drainage, Erythema Neurological: No New Focal Deficit Psy/Mental Status: Alert, Normal Affect, Normal Mood - Problem List & Annotations (1) Cellulitis and abscess of hand SNOMED Code(s): 557802800 Code(s): L03.119 - CELLULITIS OF UNSPECIFIED PART OF LIMB; L02.519 - CUTANEOUS ABSCESS OF UNSPECIFIED HAND Status: Acute Priority: High Current Visit: Yes - Problem List Review Problem List Initiated/Reviewed/Updated: Yes - My Orders Last 24 Hours: My Active Orders 07/16/17 10:27 Verify Patient Consent Obtain [RC] ASDIRECTED 07/16/17 12:55 CULTURE ANAEROBIC [RM] Routine CULTURE WOUND [RM] Routine GRAM STAIN [RM] Routine 07/16/17 13:05 CULTURE ANAEROBIC [RM] Routine CULTURE WOUND [RM] Routine GRAM STAIN [RM] Routine 07/16/17 14:09 Patient Status [ADT] Routine 07/16/17 14:23 Morphine 2 mg IVPUSH Q2H PRN 07/16/17 14:24 Acetaminophen/HYDROcodone [[place] 325-10 MG] 1 tab PO Q4H PRN 07/16/17 Dinner General [Regular Diet] [DIET] 07/17/17 07:30 Pantoprazole [ProTONIX] 40 mg PO ACBREAKFAST 07/17/17 08:16 VANCOMYCIN TROUGH [CHEM] Routine - Assessment Assessment:: Improved immediately after surgery and continues to do well with the hand. Nausea and gi upset after surgery - Plan Plan:: we will continue vanco zosyn. continue elevation, soaks and local wound cares with dressings. cbc pending. cultures negative thus far. anticipate discharge tomorrow or wednesday as long as continues to improve. start ROM with fingers and wrist. gentle.
[2017-07-17] MEDS ORDERED: Promethazine 25 MG Tab PO PRN (08:45)
[2017-07-17] MEDS: Ondansetron 4 MG Tab.DIS PO PRN ×2 (09:17→16:49)
[2017-07-17] MEDS: Acetaminophen/HYDROcodone 325-10 MG Tab PO PRN ×3 (09:17→21:05)
[2017-07-18] MEDS: Piperacillin/Tazobactam 3.375 GM in Sodium Chloride 0.9% 50 ML IV SCH ×2 (00:21→08:26)
[2017-07-18] MEDS: Pantoprazole 40 MG Tab.CR PO SCH (06:37)
[2017-07-18] MEDS: Acetaminophen/HYDROcodone 325-10 MG Tab PO PRN (08:26)
[2017-07-18 08:29] LABS: CHLORIDE,CL 108 mmol/L (98-110); SODIUM,NA 138 mmol/L (136-146)
--- NOTE | 2017-07-18 13:43 | PCM.PN ---
- General Info Date of Service: 07/18/17 Admission Dx/Problem (Free Text): Admission Diagnosis/Problem Admission Diagnosis/Problem Cellulitis Subjective Update: much improved and would like to go home today. All questions answered. Functional Status: Reports: Pain Controlled, Tolerating Diet, Ambulating. Denies: Incentive Spirometry - Review of Systems General: Reports: No Symptoms HEENT: Reports: No Symptoms Pulmonary: Reports: No Symptoms Musculoskeletal: Reports: No Symptoms Skin: Reports: No Symptoms Neurological: Reports: No Symptoms - Patient Data Vitals - Most Recent: Last Vital Signs Temp 97.1 F 07/18/17 12:00 Pulse 50 L 07/18/17 12:00 Resp 14 07/18/17 12:00 BP 141/95 H 07/18/17 12:00 Pulse Ox 98 07/18/17 12:00 Weight - Most Recent: 252 lb 9.6 oz I&O - Last 24 Hours: Intake & Output 07/17/17 07/18/17 07/18/17 23:59 07:59 15:59 Intake Total 2350 50 600 Output Total 800 Balance 1550 50 600 Lab Results Last 24 Hours: Laboratory Results - last 24 hr 07/18/17 07/18/17 Range/Units 08:00 08:00 WBC 10.50 (4.0-11.0) K/uL RBC 4.29 L (4.50-5.90) M/uL Hgb 13.7 (13.0-17.0) g/dL Hct 40.6 (38.0-50.0) % MCV 94.6 (80.0-98.0) fL MCH 31.9 (27.0-32.0) pg MCHC 33.7 (31.0-37.0) g/dL RDW Std Deviation 44.0 (28.0-62.0) fl RDW Coeff of Andry 13 (11.0-15.0) % Plt Count 197 (150-400) K/uL MPV 13.10 H (7.40-12.00) fL Neut % (Auto) 61.0 (48.0-80.0) % Lymph % (Auto) 24.9 (16.0-40.0) % [place] % (Auto) 11.3 (0.0-15.0) % Eos % (Auto) 2.5 (0.0-7.0) % Baso % (Auto) 0.3 (0.0-1.5) % Neut # (Auto) 6.4 H (1.4-5.7) K/uL Lymph # (Auto) 2.6 H (0.6-2.4) K/uL [place] # (Auto) 1.2 H (0.0-0.8) K/uL Eos # (Auto) 0.3 (0.0-0.7) K/uL Baso # (Auto) 0.0 (0.0-0.1) K/uL Nucleated RBC % 0.0 /100WBC Nucleated RBCs # 0 K/uL Sodium 138 (136-146) mmol/L Potassium 4.2 (3.5-5.1) mmol/L Chloride 108 (98-110) mmol/L Carbon Dioxide 21 (21-31) mmol/L BUN 15 (6.0-23.0) mg/dL Creatinine 0.9 (0.6-1.5) mg/dL Est Cr Clr Drug Dosing 99.40 mL/min Estimated GFR (MDRD) > 60.0 ml/min Glucose 104 (60-110) mg/dL Calcium 9.0 (8.8-10.8) mg/dL Med Orders - Current: Current Medications Hydrocodone Bitart/Acetaminophen ([place] 325-10 Mg) 1 tab PO Q4H PRN PRN Reason: Pain (moderate 4-6) Last Admin: 07/18/17 08:26 Dose: 1 tab Piperacillin Sod/Tazobactam (Sod 3.375 gm/ Sodium Chloride) 50 mls @ 100 mls/ hr IV Q8H [facility] Last Admin: 07/18/17 08:26 Dose: 100 mls/hr Vancomycin HCl 1,500 mg/ (Sodium Chloride) 500 mls @ 333.333 mls/hr IV Q12H [facility] Last Admin: 07/18/17 09:16 Dose: 333.3 mls/hr Morphine Sulfate (Morphine) 2 mg IVPUSH Q2H PRN PRN Reason: pain severe Last Admin: 07/16/17 18:16 Dose: 2 mg Ondansetron HCl (Zofran Odt) 4 mg PO Q4H PRN PRN Reason: Nausea/Vomiting Last Admin: 07/17/17 16:49 Dose: 4 mg Pantoprazole Sodium (Protonix) 40 mg PO ACBREAKFAST [facility] Last Admin: 07/18/17 06:37 Dose: 40 mg Promethazine HCl (Phenergan) 25 mg PO Q6H PRN PRN Reason: Nausea/Vomiting Discontinued Medications Hydrocodone Bitart/Acetaminophen ([place] 325-5 Mg) 2 tab PO Q4H PRN PRN Reason: Pain Last Admin: 07/16/17 07:58 Dose: 2 tab Dexamethasone (Dexamethasone) Confirm Administered Dose 20 mg .ROUTE .STK-MED ONE Stop: 07/16/17 12:44 Ephedrine Sulfate (Ephedrine Sulfate) Confirm Administered Dose 50 mg .ROUTE .STK-MED ONE Stop: 07/16/17 13:34 Fentanyl (Sublimaze) Confirm Administered Dose 100 mcg .ROUTE .STK-MED ONE Stop: 07/16/17 12:13 Fentanyl (Sublimaze) Confirm Administered Dose 100 mcg .ROUTE .STK-MED ONE Stop: 07/16/17 12:34 Fentanyl (Sublimaze) Confirm Administered Dose 100 mcg .ROUTE .STK-MED ONE Stop: 07/16/17 13:02 Fentanyl (Sublimaze) 50 mcg IVPUSH Q5M PRN PRN Reason: Pain (moderate 4-6) Stop: 07/16/17 16:00 Last Admin: 07/16/17 14:20 Dose: 50 mcg Fentanyl (Sublimaze) Confirm Administered Dose 100 mcg .ROUTE .STK-MED ONE Stop: 07/16/17 14:13 Last Admin: 07/16/17 15:10 Dose: Not Given Hydromorphone HCl (Dilaudid) 2 mg IVPUSH ONETIME ONE Stop: 07/16/17 14:24 Last Admin: 07/16/17 15:17 Dose: 2 mg Ampicillin Sodium/Sulbactam (Sodium 3 gm/ Sodium Chloride) 100 mls @ 200 mls/ hr IV ONETIME ONE Stop: 07/14/17 00:25 Last Admin: 07/14/17 00:39 Dose: 200 mls/hr Sodium Chloride (Normal Saline) 1,000 mls @ 999 mls/hr IV STAT ONE Stop: 07/14/17 00:56 Last Admin: 07/14/17 00:18 Dose: 999 mls/hr Ampicillin Sodium/Sulbactam (Sodium 1.5 gm/ Sodium Chloride) 50 mls @ 100 mls/ hr IV Q6H [facility] Stop: 07/14/17 18:30 Last Admin: 07/14/17 16:55 Dose: 100 mls/hr Ampicillin Sodium/Sulbactam (Sodium 1.5 gm/ Sodium Chloride) 50 mls @ 100 mls/ hr IV Q6H [facility] Last Admin: 07/15/17 04:12 Dose: 100 mls/hr Vancomycin HCl 1,000 mg/ (Dextrose/Water) 250 mls @ 167 mls/hr IV Q24H [facility] Bupivacaine HCl/Epinephrine Bitart (Sensorc Mpf 0.25%-Epi 1:134530) Confirm Administered Dose 30 mls @ as directed .ROUTE .STK-MED ONE Stop: 07/16/17 10:47 Ketorolac Tromethamine (Toradol) 30 mg IVPUSH ONETIME ONE Stop: 07/14/17 00:19 Last Admin: 07/14/17 00:41 Dose: 30 mg Midazolam HCl (Versed 1 Mg/Ml) Confirm Administered Dose 2 mg .ROUTE .STK-MED ONE Stop: 07/16/17 12:13 Ondansetron HCl (Zofran) Confirm Administered Dose 4 mg .ROUTE .STK-MED ONE Stop: 07/16/17 12:12 Propofol (Diprivan 20 Ml) Confirm Administered Dose 200 mg .ROUTE .STK-MED ONE Stop: 07/16/17 12:13 - Exam General: Alert, Oriented, Cooperative HEENT: Pupils Reactive Extremities: Other (range of motion much improved and swelling much better. No drainage. Incisions intact without redness. ) Skin: Warm, Dry Wound/Incisions: Healing Well, Dressing Dry and Intact, No Drainage Psy/Mental Status: Alert, Normal Affect, Normal Mood - Problem List & Annotations (1) Cellulitis and abscess of hand SNOMED Code(s): 714189824 Code(s): L03.119 - CELLULITIS OF UNSPECIFIED PART OF LIMB; L02.519 - CUTANEOUS ABSCESS OF UNSPECIFIED HAND Status: Acute Priority: High Current Visit: Yes - Problem List Review Problem List Initiated/Reviewed/Updated: Yes - Assessment Assessment:: Improved and noraml wbc. ready for discharge. Home on doxycyline, norco, PPI and nausea if needed. - Plan Plan:: doxycycline continue local wound cares ROM continues home today.
--- NOTE | 2017-07-18 13:53 | PCM.DCSUM1 ---
Discharge Summary - Hospital Course Free Text/Narrative:: admitted 07/14 for cat bite to right hand. INitial improvement with antibiotics , then worsening. Changed antibiotics and initial improvement again with then worsening. Progressed with more arm pain, pain with finger extension and diagnosed as tenosynovitis. TO OR Sunday 07/16 for wash out and carpal tunnel release. Tolerated well and improved significantly since then. GI upset and treated well with zofran and protonix. WBC normal and patient would like to go home. All questions answered and we will discharge on doxycycline. NGTD cultures. - Discharge Data Discharge Date: 07/18/17 Discharge Disposition: Home, Self-Care Condition: Fair - Discharge Diagnosis/Problem(s) (1) Cellulitis and abscess of hand SNOMED Code(s): 973569611 ICD Code: L03.119 - CELLULITIS OF UNSPECIFIED PART OF LIMB; L02.519 - CUTANEOUS ABSCESS OF UNSPECIFIED HAND Status: Acute Priority: High Current Visit: Yes - Patient Summary/Data Operative Procedure(s) Performed: incision and drainage of right hand and finger and forearm flexor tenosynovitis and right carpal tunnel release - Patient Instructions Diet: Usual Diet as Tolerated Activity: Elevate Extremity, Rest and Relax Today Driving: May Drive Today Showering/Bathing: May Shower Wound/Incision Care: Change Dressing Daily Notify Provider of: Fever, Increased Pain, Swelling and Redness, Drainage, Nausea and/or Vomiting - Discharge Plan Prescriptions/Med Rec: Doxycycline [Doxycycline Hyclate] 100 mg PO BID #14 cap Hydrocodone/Acetaminophen [[place] 10-325 Tablet] 1 each PO Q4HR PRN #40 tablet PRN Reason: Pain Ondansetron [Zofran ODT] 4 mg PO Q4H PRN #20 tab.dis PRN Reason: Nausea/Vomiting Pantoprazole [ProTONIX] 40 mg PO ACBREAKFAST #10 tab.cr Home Medications: Home Meds Doxycycline [Doxycycline Hyclate] 100 mg PO BID #14 cap 07/18/17 [Rx] Hydrocodone/Acetaminophen [[place] 10-325 Tablet] 1 each PO Q4HR PRN #40 tablet [Rx] Ondansetron [Zofran ODT] 4 mg PO Q4H PRN #20 tab.dis 07/18/17 [Rx] Pantoprazole [ProTONIX] 40 mg PO ACBREAKFAST #10 tab.cr 07/18/17 [Rx] Patient Handouts: Cellulitis, Adult, [id number] - Discharge Summary/Plan Comment DC Time >30 min.: No Discharge Summary/Plan Comment: WBC normal and patient would like to go home. All questions answered and we will discharge on doxycycline. NGTD cultures. - General Info Date of Service: 07/18/17 Subjective Update: much improved and would like to go home today. All questions answered. Functional Status: Reports: Pain Controlled, Tolerating Diet - Review of Systems General: Reports: No Symptoms - Patient Data Vitals - Most Recent: Last Vital Signs Temp 97.1 F 07/18/17 12:00 Pulse 50 L 07/18/17 12:00 Resp 14 07/18/17 12:00 BP 141/95 H 07/18/17 12:00 Pulse Ox 98 07/18/17 12:00 Weight - Most Recent: 252 lb 9.6 oz I&O - Last 24 hours: Intake & Output 07/17/17 07/18/17 07/18/17 23:59 07:59 15:59 Intake Total 2350 50 600 Output Total 800 Balance 1550 50 600 Lab Results - Last 24 hrs: Laboratory Results - last 24 hr 07/18/17 07/18/17 Range/Units 08:00 08:00 WBC 10.50 (4.0-11.0) K/uL RBC 4.29 L (4.50-5.90) M/uL Hgb 13.7 (13.0-17.0) g/dL Hct 40.6 (38.0-50.0) % MCV 94.6 (80.0-98.0) fL MCH 31.9 (27.0-32.0) pg MCHC 33.7 (31.0-37.0) g/dL RDW Std Deviation 44.0 (28.0-62.0) fl RDW Coeff of Andry 13 (11.0-15.0) % Plt Count 197 (150-400) K/uL MPV 13.10 H (7.40-12.00) fL Neut % (Auto) 61.0 (48.0-80.0) % Lymph % (Auto) 24.9 (16.0-40.0) % [place] % (Auto) 11.3 (0.0-15.0) % Eos % (Auto) 2.5 (0.0-7.0) % Baso % (Auto) 0.3 (0.0-1.5) % Neut # (Auto) 6.4 H (1.4-5.7) K/uL Lymph # (Auto) 2.6 H (0.6-2.4) K/uL [place] # (Auto) 1.2 H (0.0-0.8) K/uL Eos # (Auto) 0.3 (0.0-0.7) K/uL Baso # (Auto) 0.0 (0.0-0.1) K/uL Nucleated RBC % 0.0 /100WBC Nucleated RBCs # 0 K/uL Sodium 138 (136-146) mmol/L Potassium 4.2 (3.5-5.1) mmol/L Chloride 108 (98-110) mmol/L Carbon Dioxide 21 (21-31) mmol/L BUN 15 (6.0-23.0) mg/dL Creatinine 0.9 (0.6-1.5) mg/dL Est Cr Clr Drug Dosing 99.40 mL/min Estimated GFR (MDRD) > 60.0 ml/min Glucose 104 (60-110) mg/dL Calcium 9.0 (8.8-10.8) mg/dL Med Orders - Current: Current Medications Hydrocodone Bitart/Acetaminophen ([place] 325-10 Mg) 1 tab PO Q4H PRN PRN Reason: Pain (moderate 4-6) Last Admin: 07/18/17 08:26 Dose: 1 tab Piperacillin Sod/Tazobactam (Sod 3.375 gm/ Sodium Chloride) 50 mls @ 100 mls/ hr IV Q8H SOLE Last Admin: 07/18/17 08:26 Dose: 100 mls/hr Vancomycin HCl 1,500 mg/ (Sodium Chloride) 500 mls @ 333.333 mls/hr IV Q12H SOLE Last Admin: 07/18/17 09:16 Dose: 333.3 mls/hr Morphine Sulfate (Morphine) 2 mg IVPUSH Q2H PRN PRN Reason: pain severe Last Admin: 07/16/17 18:16 Dose: 2 mg Ondansetron HCl (Zofran Odt) 4 mg PO Q4H PRN PRN Reason: Nausea/Vomiting Last Admin: 07/17/17 16:49 Dose: 4 mg Pantoprazole Sodium (Protonix) 40 mg PO ACBREAKFAST SOLE Last Admin: 07/18/17 06:37 Dose: 40 mg Promethazine HCl (Phenergan) 25 mg PO Q6H PRN PRN Reason: Nausea/Vomiting Discontinued Medications Hydrocodone Bitart/Acetaminophen ([place] 325-5 Mg) 2 tab PO Q4H PRN PRN Reason: Pain Last Admin: 07/16/17 07:58 Dose: 2 tab Dexamethasone (Dexamethasone) Confirm Administered Dose 20 mg .ROUTE .STK-MED ONE Stop: 07/16/17 12:44 Ephedrine Sulfate (Ephedrine Sulfate) Confirm Administered Dose 50 mg .ROUTE .STK-MED ONE Stop: 07/16/17 13:34 Fentanyl (Sublimaze) Confirm Administered Dose 100 mcg .ROUTE .STK-MED ONE Stop: 07/16/17 12:13 Fentanyl (Sublimaze) Confirm Administered Dose 100 mcg .ROUTE .STK-MED ONE Stop: 07/16/17 12:34 Fentanyl (Sublimaze) Confirm Administered Dose 100 mcg .ROUTE .STK-MED ONE Stop: 07/16/17 13:02 Fentanyl (Sublimaze) 50 mcg IVPUSH Q5M PRN PRN Reason: Pain (moderate 4-6) Stop: 07/16/17 16:00 Last Admin: 07/16/17 14:20 Dose: 50 mcg Fentanyl (Sublimaze) Confirm Administered Dose 100 mcg .ROUTE .STK-MED ONE Stop: 07/16/17 14:13 Last Admin: 07/16/17 15:10 Dose: Not Given Hydromorphone HCl (Dilaudid) 2 mg IVPUSH ONETIME ONE Stop: 07/16/17 14:24 Last Admin: 07/16/17 15:17 Dose: 2 mg Ampicillin Sodium/Sulbactam (Sodium 3 gm/ Sodium Chloride) 100 mls @ 200 mls/ hr IV ONETIME ONE Stop: 07/14/17 00:25 Last Admin: 07/14/17 00:39 Dose: 200 mls/hr Sodium Chloride (Normal Saline) 1,000 mls @ 999 mls/hr IV STAT ONE Stop: 07/14/17 00:56 Last Admin: 07/14/17 00:18 Dose: 999 mls/hr Ampicillin Sodium/Sulbactam (Sodium 1.5 gm/ Sodium Chloride) 50 mls @ 100 mls/ hr IV Q6H [facility] [place] Stop: 07/14/17 18:30 Last Admin: 07/14/17 16:55 Dose: 100 mls/hr Ampicillin Sodium/Sulbactam (Sodium 1.5 gm/ Sodium Chloride) 50 mls @ 100 mls/ hr IV Q6H [facility] [place] Last Admin: 07/15/17 04:12 Dose: 100 mls/hr Vancomycin HCl 1,000 mg/ (Dextrose/Water) 250 mls @ 167 mls/hr IV Q24H [facility] [place] Bupivacaine HCl/Epinephrine Bitart (Sensorc Mpf 0.25%-Epi 1:[id number]) Confirm Administered Dose 30 mls @ as directed .ROUTE .STK-MED ONE Stop: 07/16/17 10:47 Ketorolac Tromethamine (Toradol) 30 mg IVPUSH ONETIME ONE Stop: 07/14/17 00:19 Last Admin: 07/14/17 00:41 Dose: 30 mg Midazolam HCl (Versed 1 Mg/Ml) Confirm Administered Dose 2 mg .ROUTE .STK-MED ONE Stop: 07/16/17 12:13 Ondansetron HCl (Zofran) Confirm Administered Dose 4 mg .ROUTE .STK-MED ONE Stop: 07/16/17 12:12 Propofol (Diprivan 20 Ml) Confirm Administered Dose 200 mg .ROUTE .STK-MED ONE Stop: 07/16/17 12:13 - Exam General: Reports: Alert, Oriented Extremities: Other (incisions healing well and minimal residual swelling compared to initial. ) Wound/Incisions: Reports: Healing Well, Dressing Dry and Intact, No Drainage *Q Meaningful Use (DIS) - VTE *Q VTE Criteria *Q: VTE Anticoagulation Contraindications: Med/TX Not Indicated/Need - Stroke *Q Stroke Criteria *Q: Anticoagulation Contraindications Stroke *Q: Med/TX Not Indicated/Need Antithrombotic Contraindications Stroke *Q: Med/TX Not Indicated/Need Statin Contraindications Stroke *Q: Med/TX Not Indicated/Need Rehabilitation Assessment Contraindication *Q: Med/tx not indicated/need - AMI *Q AMI Criteria *Q: Aspirin Contraindications AMI *Q: Med/TX Not Indicated/Need Statin Contraindications AMI *Q: Med/TX Not Indicated/Need
--- NOTE | 2017-07-19 13:05 | OR ---
SURGEON: GOYO CASTELLANOS MD DATE OF PROCEDURE: 07/16/2017 PREOPERATIVE DIAGNOSIS: Flexor tenosynovitis, right small finger, hand, and forearm. POSTOPERATIVE DIAGNOSIS: Flexor tenosynovitis, right small finger, hand, and forearm. PROCEDURE: Incision and drainage of right hand, finger, and forearm flexor tenosynovitis including right carpal tunnel release. BOILER TUBE BLOWER: BROCK Snyder. INDICATIONS: Mr. Guy is a 57-year-old gentleman who came to the emergency room on 07/13/2017 late evening and was maintained in the hospital on IV antibiotics for a cat bite. Unfortunately, the cat bite has initially improved with antibiotics and worsened. Antibiotics were changed and he continued to have worsening over the next overnight. On Wednesday morning evaluation, risks and benefits of incision and drainage were discussed with him. It is improving but not as rapidly as we would like and there are signs of flexor tenosynovitis. Risks and benefits of I and D were discussed with him and he would like to proceed. Risks were including, but not limited to, bleeding, infection, damage to underlying or overlying structures, possible need for future interventions, possible scarring, and possible stiffness. PROCEDURE IN DETAIL: After informed consent was obtained and placed on the chart, the patient was brought to the operating theater and laid in supine position. After adequate general anesthesia was obtained, the area was prepped and draped and a time-out was completed to confirm side and site. Attention was then paid to elevation of the arm and insufflation of the tourniquet. Once adequately insufflated to 250 mmHg, a carpal tunnel release incision was made and dissection was carried until complete release of the ligament. Dissection was then carried circumferentially around the tendon tears to look for any signs of tenosynovitis. There is mild inflammation here, but no signs of purulence. Dissection was then carried from here into Parona's space through an extension of the proximal incision. Parona's space was located and a small amount of purulent material with inflammatory congealed material was expressed from his Parona's area. This was copiously irrigated and attention was paid to a Noé incision over the right small finger and a trigger finger release type incision over the ring finger. Dissection was carried here into the tendon sheath and a pediatric urinary catheter was threaded into the area for copious irrigation. Once adequately irrigated and the water was running clear without any signs of contamination, the area was closed using a 5-0 nylon stitch in the finger in a horizontal mattress fashion and a 4-0 Prolene in the wrist. The patient tolerated this well. The wounds were dressed with Xeroform, fluffs, and a Kerlix gauze dressing. Prior to copious irrigation, the material was taken and sent for culture. The patient was transferred back to the floor in stable condition. Antibiotics will be maintained until improvement. QUINCY / ERIK /[id number]
== END 2017-07-18 14:30 | disposition home or self-care (01) | DRG 952 ==
LOC: MW.ED 23:12 → MW.MS 07-14 08:50 → OBSVTOIN 07-16 14:09 → MW.MS 07-16 16:50
PROVIDERS: ADMIT Plastic Surgery; ATTEND Plastic Surgery
PROC: 01N50ZZ Release Median Nerve, Open Approach (ICD-10-PCS; principal; 2017-07-16)
DX: S61.451A Open bite of right hand, initial encounter (principal); L03.113 Cellulitis of right upper limb; L02.511 Cutaneous abscess of right hand; M65.9 Synovitis and tenosynovitis, unspecified; Z79.899 Other long term (current) drug therapy; G56.01 Carpal tunnel syndrome, right upper limb
CPT/HCPCS: 01810; 36415; 73120-26-RT; 73120-RT; 80048; 80053; 80202; 85025; 87040; 87070; 87075; 87205; 96361; 96365; 96366; 96367; 96375; 96376; 99283; 99284-25; A9270-GY; G0378; J0287; J0295; J1100; J1170; J1885; J2250; J2270; J2405; J2543; J2704; J3010; J3370; J7030; J7040; J7050